=== PATIENT | female | born 1985 | race Caucasian/White ===

== ENCOUNTER 2016-09-27 16:15 | Emergency (ER) | payer SELFPAY | END 2016-09-27 20:19 | disposition home or self-care (01) | LOC: ER 16:15 | DX: S83.91XA Sprain of unspecified site of right knee, initial encounter (principal); Z88.8 Allergy status to other drugs, medicaments and biological substances; Z88.1 Allergy status to other antibiotic agents; Z91.040 Latex allergy status; W19.XXXA Unspecified fall, initial encounter | CPT/HCPCS: 73560-RT; 73630-RT; 99284 ==